=== PATIENT | female | born 1985 | race Caucasian/White ===

== ENCOUNTER 2019-08-01 18:00 | Emergency (ER) | payer SELFPAY | END 2019-08-01 18:50 | disposition left against medical advice (07) | DX: Z53.21 Procedure and treatment not carried out due to patient leaving prior to being seen by health care provider (principal) ==

== ENCOUNTER 2019-08-12 21:25 | Inpatient (IN) | payer SELFPAY ==
[~2019-08-12] VITALS: Ht 160 cm; Wt 67.8 kg
[2019-08-12 23:46] LABS: BASOPHILS ABSOLUTE AUTO 0.06 K/mm3 (0.00-0.23); BASOPHILS PERCENT AUTO 0 % (0-2); EOSINOPHILS ABSOLUTE AUTO 0.12 K/mm3 (0.00-0.68); EOSINOPHILS PERCENT AUTO 1 % (0-6); Hematocrit 39.6 % (33.0-51.0); Hemoglobin 13.5 g/dL (11.5-16.0); IMMATURE GRAN ABSOLUTE AUTO 0.05 K/mm3 (0.00-0.10); IMMATURE GRAN PERCENT AUTO 0 % (0-1); LYMPHOCYTES ABSOLUTE AUTO 2.32 K/mm3 (0.84-5.20); LYMPHOCYTES PERCENT AUTO 17 % (21-46); MONOCYTES PERCENT AUTO 9 % (4-13); Mean Corpuscular HGB 32.5 pg (26.0-34.0); Mean Corpuscular HGB Conc 34.1 g/dL (31.5-36.5); Mean Corpuscular Volume 95 fL (80-100); Mean Platelet Volume 9.4 fL (9.1-12.4); NEUTROPHILS ABSOLUTE AUTO 9.93 K/mm3 (1.96-9.15); NEUTROPHILS PERCENT AUTO 72 % (41-73); Platelet Count 320 K/mm3 (150-400); RDW Coefficient Variation 11.9 % (11.7-14.2); RDW Standard Deviation 41.2 fL (35.1-46.3); Red Blood Cell Count 4.15 M/mm3 (3.80-5.20); White Blood Cell Count 13.78 K/mm3 (4.00-11.30)
[2019-08-13 00:04] LABS: Alanine Aminotransfer (ALT/SGP 61 U/L (12-78); Albumin/Globulin Ratio 0.7 (0.8-1.8); Alk Phos 108 U/L (50-136); Anion Gap 9 mmol/L (6-16); Aspartate Aminotrans (AST/SGOT 32 U/L (12-37); Bilirubin, Total 0.6 mg/dL (0.1-1.0); Blood Urea Nitrogen 10 mg/dL (8-24); Bun/Creatinine Ratio 15.4 (12.0-20.0); CO2, Blood 22 mmol/L (21-32); Calcium, Blood 8.5 mg/dL (8.5-10.1); Chloride, Blood 105 mmol/L (98-108); Creatinine, Blood 0.65 mg/dL (0.40-1.00); Globulin, Blood 4.2 g/dL (2.2-4.0); Glomerular Filtration Rate >60 (60-); Glucose, Blood 93 mg/dL (70-99); Potassium, Blood 3.6 mmol/L (3.5-5.5); Sodium, Blood 136 mmol/L (136-145); Total Protein, Blood 7.2 g/dL (6.4-8.2)
--- NOTE | 2019-08-13 03:38 | NUR ---
PATIENT IS A NEW ADMIT FROM THE ED. AXOX 4 AND SBA ASSIST TRANSFER FROM [facility] TO BED. ANXIOUS ON ADMIT. PATIENT WOUNDS CLEANED, PHOTOGRAPHED AND NEW DRESSINGS APPLIED TO RIGHT THIGH AND R AXILLA AREA. PIV INTACT AND LR INFUSING AT 150mL/HR. CARD BRUSHER REPORTS NSR 67. CEDS AND HX OF METH AND HEP C. WOUND AREA PAINFUL ON TOUCH. DENIES SOB AND N/V. PATIENT ORIENTED TO ROOM AND CALL LIGHT SYSTEM. REPORTS WANTING TO SLEEP. WILL CONTINUE TO MONITOR.
--- NOTE | 2019-08-13 04:48 | NUR ---
PATIENT SLEEPING. LR INFUSING AT 150mL/HR. WILL CONTINUE TO MONITOR.
--- NOTE | 2019-08-13 06:28 | NUR ---
TOX SCREEN COLLECTED AND SENT TO LAB. LAB REPORTS OUT OF KITS AND HAVE TO SEND OUT.
--- NOTE | 2019-08-13 08:18 | NUR ---
REQUEST PAIN MEDS FROM . PATIENT HAS TAKEN IBU IN PAST, BUT SAYS "IT DOESN'T WORK." REFUSED TYLENOL ON REAL ESTATE TRANSACTION COORDINATOR. NKA. FRANK TO ORDER .
--- NOTE | 2019-08-13 13:39 | NUR ---
PATIENT HAS 2 NONBORDER SPONGES TO POSTERIOR THIGH AND ONE TO RT AXILLARY AREA. PATIENT STS "HURTS TOO MUCH" AND DOES NOT LET THIS RN CHECK UNDERNEATH ANY. DRESSINGS NOT SATURATED. THIGH WOUNDS HAVE DRIED BLOOD AROUND SIDES OF DRESSINGS. SLEEPS MOST OF SHIFT WITH SHEET OVER HEAD. [facility]
[2019-08-13 15:26] LABS: Vancomycin, Trough 12.4 ug/mL (5.0-10.0)
--- NOTE | 2019-08-13 16:35 | NUR ---
PER DWAYNE RIVERA WILL GIVE IV FLUIDS FOR 1 HOUR THEN RECHECK VS AND GIVE TOPROL
--- NOTE | 2019-08-13 16:59 | NUR ---
DISCUSS VS WITH . ORDERED MIDODRINE 5 MG TIMES ONE. HOLD TOPROL FOR TODAY
--- NOTE | 2019-08-13 18:36 | NUR ---
ALERT. ORIENTED. SLEEPING MOST OF SHIFT. REFUSES DRESSING CHANGES OR EVEN TO LET THIS RN TO LOOK AT WOUNDS. STS GOT WOUNDS FROM "[facility]".DSG DRY. LIVES IN [place] AND IS HITCH HIKING WITH BOYFRIEND BACK THERE. STS WERE JUST IN [place] WHERE BOYFRIEND WAS AT [facility] AWARE BELONGINGS ARE IN LOCKED AREA IN [place]AGE. REVIEWED LABS AND IMAGING MULTIPLE TIMES PATIENT ASKS SAME QUESTIONS. THIS RN THOUGHT IV POSSIBLY INFILTRATED AND HAD NET MAKER (MACI)CHECK AND SHE DID NOT FEEL IT WAS.PATIENT HAD REFUSED TO HAD ANOTHER IV STARTED. DENIES RECENT METH USE.PATIENT C/O PAIN EARLY A.M. AND RECEIVED ORDER FOR NARCOTIC PAIN MEDS. WHEN RN RETURNED TO ROOM PATIENT SLEEPING. PATIENT NOT AWAKENED TO CHECK ON PAIN. USES BSC. UNLABORED RESPIRATIONS. WCTM
--- NOTE | 2019-08-14 03:03 | NUR ---
SHIFT SUMMARY PATIENT HAD NO ACUTE CHANGES OBSERVED. AXOX 4 AND SBA TO BR. RECEIVED SCHEDULE IV TORADOL FOR RIGHT THIGH PAIN PER EMAR. PIV REMAINS INTACT. IV ABXS INFUSED. MAPPING PILOT REPORTS NSR 75. VSS/AFEBRILE. DENIES SOB AND N/V. SLEPT MOST OF THE SHIFT. NS INFUSED AT 150 mL/HR COMPLETE. CALL LIGHT IN REACH. BED IN LOWEST POSITION. WILL CONTINUE TO MONITOR UNTIL DAY SHIFT NURSE ASSUMES CARE.
[2019-08-14 09:16] LABS: BASOPHILS ABSOLUTE AUTO 0.05 K/mm3 (0.00-0.23); BASOPHILS PERCENT AUTO 1 % (0-2); EOSINOPHILS ABSOLUTE AUTO 0.12 K/mm3 (0.00-0.68); EOSINOPHILS PERCENT AUTO 1 % (0-6); Hematocrit 36.8 % (33.0-51.0); Hemoglobin 12.2 g/dL (11.5-16.0); IMMATURE GRAN ABSOLUTE AUTO 0.04 K/mm3 (0.00-0.10); IMMATURE GRAN PERCENT AUTO 0 % (0-1); LYMPHOCYTES ABSOLUTE AUTO 2.09 K/mm3 (0.84-5.20); LYMPHOCYTES PERCENT AUTO 23 % (21-46); MONOCYTES ABSOLUTE AUTO 0.63 K/mm3 (0.16-1.47); MONOCYTES PERCENT AUTO 7 % (4-13); Mean Corpuscular HGB 32.6 pg (26.0-34.0); Mean Corpuscular HGB Conc 33.2 g/dL (31.5-36.5); Mean Platelet Volume 9.8 fL (9.1-12.4); NEUTROPHILS ABSOLUTE AUTO 6.25 K/mm3 (1.96-9.15); NEUTROPHILS PERCENT AUTO 68 % (41-73); Platelet Count 286 K/mm3 (150-400); RDW Standard Deviation 43.8 fL (35.1-46.3); Red Blood Cell Count 3.74 M/mm3 (3.80-5.20); White Blood Cell Count 9.18 K/mm3 (4.00-11.30)
[2019-08-14 09:17] LABS: Mean Corpuscular Volume 98 fL (80-100)
[2019-08-14 09:40] LABS: Alanine Aminotransfer (ALT/SGP 47 U/L (12-78); Albumin, Blood 2.2 g/dL (3.4-5.0); Albumin/Globulin Ratio 0.6 (0.8-1.8); Alk Phos 80 U/L (50-136); Anion Gap 8 mmol/L (6-16); Aspartate Aminotrans (AST/SGOT 27 U/L (12-37); Bilirubin, Total 0.2 mg/dL (0.1-1.0); Blood Urea Nitrogen 13 mg/dL (8-24); Bun/Creatinine Ratio 18.8 (12.0-20.0); CO2, Blood 21 mmol/L (21-32); Calcium, Blood 8.1 mg/dL (8.5-10.1); Chloride, Blood 113 mmol/L (98-108); Creatinine, Blood 0.69 mg/dL (0.40-1.00); Globulin, Blood 3.5 g/dL (2.2-4.0); Glomerular Filtration Rate >60 (60-); Glucose, Blood 133 mg/dL (70-99); Magnesium, Blood 1.8 mg/dL (1.6-2.4); Sodium, Blood 142 mmol/L (136-145); Total Protein, Blood 5.7 g/dL (6.4-8.2)
[2019-08-14] MEDS ORDERED: LINE600 PO (14:44)
[2019-08-14] MEDS ORDERED: IBUP600 PO (14:44)
--- NOTE | 2019-08-14 16:00 | NUR ---
PT DISCARGED AT 1530 AOX4 AND COOPERATIVE OF CARE. PT TREATED FOR R LEG PAIN PER EMAR X2 NO DISTRESS UPON DISCHARGE. WOUNDS ON LEG WERE CLEANED AND PT WAS INTRUCTED TO KEEP WOUNDS CLEAN AND TAKE CARE OF THEM DAILY OR NEEDED. PT HAD ALL PAPERWORK REVIEWED AND A PACKET FOR [facility] TO GO TO URGENT CARE FOR FOLLOW UP AND SET UP WITH A PCP. PT VERBALIZED UNDERSTANDING AND WAS ALSO INSTRUCTED TO BINDER COVERSTITCH HER MEDICATION[facility] AND TAKE HER COMPLETE COURSE OF ANTIBOTICS EVEN IF WOUND LOOK MUCH BETTER. PT WAS ESCORTED OUT VIA WHEELCHAIR AND WAS TO STOP BY SECURITY FOR SOME PERSONL BELONGINGS. NO DISTRESS NOTED AND PT WAS ABLE TO AMBULATE IN ROOM INDEPENDENTLY.
== END 2019-08-14 12:41 | disposition home or self-care (01) | DRG 872 ==
LOC: ER 21:25 → MEDS 08-13 02:20
PROVIDERS: Emergency Medicine; Internal Medicine; ADMIT Internal Medicine
DX: A41.02 Sepsis due to Methicillin resistant Staphylococcus aureus (principal); L02.415 Cutaneous abscess of right lower limb; B19.20 Unspecified viral hepatitis C without hepatic coma; Y92.9 Unspecified place or not applicable; T63.301A Toxic effect of unspecified spider venom, accidental (unintentional), initial encounter; F17.210 Nicotine dependence, cigarettes, uncomplicated
CPT/HCPCS: 36415; 73701; 80053; 80202; 83605; 83735; 84443; 85025; 87070; 87075; 87077; 87186; 87205; 93005; 93010; 96365; 96366; 96367; 99284-25; A9270-GY; J0295; J1885; J2543; J3370; J7030; J7050; J7120; Q9967